=== PATIENT | female | born 1925 | race Two or more races ===

== ENCOUNTER 2017-04-15 16:16 | Outpatient (CLI) | payer OTHER | END 2017-04-15 16:29 | disposition home or self-care (01) | LOC: RAD 16:16 | DX: L97.922 Non-pressure chronic ulcer of unspecified part of left lower leg with fat layer exposed (principal); I73.89 Other specified peripheral vascular diseases ==

== ENCOUNTER 2017-04-17 11:32 | Outpatient (CLI) | payer OTHER | END 2017-04-17 11:34 | disposition home or self-care (01) | LOC: NUCLEAR 11:32 | DX: I87.2 Venous insufficiency (chronic) (peripheral) (principal) ==

== ENCOUNTER → 2017-04-17 14:44 | Outpatient (CLI) | payer OTHER | END | disposition home or self-care (01) | LOC: LAB 14:44 | DX: E55.9 Vitamin D deficiency, unspecified (principal); M85.88 Other specified disorders of bone density and structure, other site; D64.89 Other specified anemias; E88.89 Other specified metabolic disorders; Z22.322 Carrier or suspected carrier of Methicillin resistant Staphylococcus aureus; M06.4 Inflammatory polyarthropathy; N39.0 Urinary tract infection, site not specified; L97.922 Non-pressure chronic ulcer of unspecified part of left lower leg with fat layer exposed ==

== ENCOUNTER 2017-04-25 13:14 | Outpatient (CLI) | payer OTHER | END 2017-04-25 13:19 | disposition home or self-care (01) | LOC: NUCLEAR 13:14 | DX: I73.9 Peripheral vascular disease, unspecified (principal) ==